=== PATIENT | female | born 1985 | race Native Hawaiian/Other Pacific Islander ===

== ENCOUNTER 2017-11-25 06:00 | Inpatient (IN) | payer OTHER ==
[2017-11-25 06:16] VITALS: BMI 29.2
[2017-11-25] MEDS ORDERED: Phenaphthazine-PH Test Paper VI ONE (06:44)
--- NOTE | 2017-11-25 08:23 | OBHP ---
Datetime: 11/25/2017 06:47 IP Adm Impression: , intrauterine IP Admit Plan: Admit to unit; Initiate labor protocol; Observation/Evaluation Admit Comment, IP Provider: 32 y/o F at 35.2 weeks GA presents to [facility] c/o gush of fluid coming out from vagina at 04:00 am. Fluid was described as pinkish clear with some little bloody mucus. CTX are present, very mild and occuring every 30 minutes. FM present. Pt denies headache, visual disturb ances, CP, SOB, N/V, urinary complaints or pruritus. [facility] Clinic: [facility] with Dr Franco. (Pre- records not available). OBHx: , no complications during as per patient. PMHx: Hypothyroidism. Meds: Levothyroxine 50mcg, PNV. PSHx: denied FHx: denied SHx: No tobacco, alcohol or rec drugs. A/P: 32 y/o F with IUP at 35.2 weeks GA, with suspected PPROM. -Speculum exam revealed pooling Admitting routine labs IV antibiotics misoprostol Anticipate normal vaginal delivery Estimated weight 6 pounds vertex presentation adequate Patient was seen with resident I agree with note Extremities - PN: Normal Abdomen - PN: Normal Back - PN: Normal Lungs - PN: Normal Heart - PN: Normal Neurologic - PN: Normal HEENT - PN: Normal General - PN: Normal Amniotic Fluid Color, Provider: Clear Membranes, Provider: Ruptured Comments, ACOG Physical Exam: Speculum exam gross pooling Pool Provider: Positive Nitrazine Provider: Positive EGA AdmitDate IP: 35.2 Vital Signs Provider: Reviewed; Within Normal Limits IP Chief Complaint: Suspected ruptured membranes; Maternal discomfort Genitourinary Exam: Normal
[2017-11-25 08:42] LABS: BASO # 0.1 K/uL (0.0-0.2); BASO % 0.4 % (0.0-2.0); EOS % 0.3 % (0.0-4.0); HEMOGLOBIN 12.6 g/dL (12.0-16.0); LYMPH # 2.1 K/uL (1.0-4.3); LYMPH % 14.2 % (20.0-40.0); MEAN CELL VOLUME 83.2 fl (81.0-99.0); MEAN CORPUSCULAR HEMOGLOBIN 27.8 pg (27.0-31.0); MEAN CORPUSCULAR HGB CONC 33.4 g/dL (33.0-37.0); MEAN PLATELET VOLUME 10.1 fl (7.2-11.7); MONO # 0.7 K/uL (0.0-0.8); NEUT % 80.1 % (50.0-75.0); NRBC % 0.1 % (0.0-0.0); RBC 4.54 Mil/uL (3.80-5.20); RED CELL DISTRIBUTION WIDTH 14.6 % (11.5-14.5)
[2017-11-25] MEDS: Lactated Ringer's 1,000 ML IV SCH ×2 (09:20→23:04)
[2017-11-25] MEDS ORDERED: Nalbuphine 20 mg/ml Inj (1 ml) IVP ONE (22:35)
--- NOTE | 2017-11-26 08:34 | OBPN ---
Datetime: 11/26/2017 08:10 IP Progress Impression: Reassuring heart rate IP Informed Consent Obtain: Vaginal Delivery; Risks, Benefits and Alternatives Discussed IP Progress Plan: Continue present management; Induction; Cervical Ripening IP Progress Note Comment: She was admitted for SROM / prolonged ROM She was given Cytotec x 3 doses SVE ft Discussion with pt about IOL and Prolonged ROM PLAN: continue Cytotec 50mcg/Ab FHR Category Provider Fetus A: Category I Dilatation, Provider: FT Datetime: 11/25/2017 06:47 Pool Provider: Positive Nitrazine Provider: Positive Membranes, Provider: Ruptured Amniotic Fluid Color, Provider: Clear FHR - Baseline A Provider: 142 Vital Signs Provider: Reviewed; Within Normal Limits NICHD Accel Fetus A IP Provider: [id number] NICHD Variability Prov Fetus A: Moderate 6-25bpm NICHD Decel Fetus A IP Provider: None
[2017-11-26] MEDS ORDERED: ceFAZolin IV 2 gm in Dextrose 2 GM/50 ML BAG IVPB ONE ×2 (10:10→10:30)
[2017-11-26] MEDS ORDERED: Oxytocin 30 UNITS in Sodium Chloride 0.9% 500 ML IV ONE (10:10)
--- NOTE | 2017-11-26 10:26 | OBPN ---
Datetime: 11/26/2017 10:10 IP Informed Consent Obtain: Section Delivery; Risks, Benefits and Alternatives Discussed IP Progress Plan: Deliver- Section IP Progress Note Comment: Notified of repetitive deceleratoins. SVE FT A: recurrent decelerations remote from delivery PLAN: C/Seciton...informed consent obtained FHR Category Provider Fetus A: Category II NICHD Decel Fetus A IP Provider: Variable
[2017-11-26] MEDS ORDERED: Morphine 5 mg/10 ml preservative-free Inj(Duramorph) ONE (10:40)
[2017-11-26] MEDS ORDERED: Oxycodone/Acetaminophen 5/325 mg Tab PO PRN (11:40)
[2017-11-26] MEDS ORDERED: DiphenhydrAMINE 50 mg/ml Inj IVP PRN (13:31)
--- NOTE | 2017-11-26 16:17 | OBDS ---
DELIVERY PERSONNEL Delivery Doctor: Monika Prado DO Manufacturing Intern: Dania Marc RN Anesthesiologist: Dr. Rose Resident: Dr. Alejo MATERNAL INFORMATION Delivery Anesthesia: Spinal Medications in Delivery: Pitocin 30 units Estimated Blood Loss (ml): 800 Placenta Cultured: No Maternal Complications: Premature Rupture of Membranes Provider Comments: PreOp Dx: repetitive decels remote fron delivery Post Op Dx same/? abruption of placenta Surgeon Dr Prado Asst Lisette Asst: Dr Cedillo Anesth: Dr Alexandra Anesth: Spinal Findings: live infant female delivered from [facility] 9,9 Clear AF Placenta delivered intact manually (?abruption) Ovaries and tubes WNL She remained stable EBL 800cc LABOR SUMMARY EDC: 12/28/2017 00:00 No. Babies in Womb: 1 LABOR INFORMATION Reason for Induction: Not Applicable Cervical Ripening Agents: Cytotec @ Oxytocin: N/A Group B Beta Strep: Done, Result Unknown Antibiotics # of Doses: 5 Antibiotics Time of Last Dose: 815 Steroids Given: None MEMBRANES Membranes Rupture Method: Spontaneous Rupture of Membranes: 11/25/2017 04:00 Length of Rupture (hrs): 31.18 Amniotic Fluid Color: Clear Amniotic Fluid Amount: Small Amniotic Fluid Odor: Normal STAGES OF LABOR Stage 3 hrs: 0 Stage 3 min: 1 CSECTION DELIVERY Primary Indication: Other Other Primary Indication: repetitive decelerations CSection Urgency: Elective CSection Incidence: Primary Labor: Labor Elective: Elective CSection Incision: Lower Uterine Transverse BABY A INFORMATION Delivery Date/Time: 11/26/2017 11:11 Method of Delivery: Born in Route : No : N/A Forceps: N/A Vacuum Extraction: N/A Shoulder Dystocia : No SHOULDER DYSTOCIA BABY A Delivery Date/Time: 11/26/2017 11:11 PRESENTATION/POSITION BABY A Presentation: Cephalic Cephalic Presentation: Vertex Breech Presentation: N/A PLACENTA INFORMATION BABY A Placenta Delivery Time : 11/26/2017 11:12 Placenta Method of Delivery: Spontaneous Placenta Status: Delivered SCORES BABY A Heart Rate 1 min: >100 bpm Resp Effort 1 min: Good Cry Reflex Irritability 1 min: Cough or Sneeze or Pulls Away Muscle Tone 1 min: Active Motion Color 1 min: Body [place], Extremities Blue Resuscitation Effort 1 min: Tactile Stimulation SCORE 1 MIN: 9 Heart Rate 5 min: >100 bpm Resp Effort 5 min: Good Cry Reflex Irritability 5 min: Cough or Sneeze or Pulls Away Muscle Tone 5 min: Active Motion Color 5 min: Body [place], Extremities Blue Resuscitation Effort 5 min: Tactile Stimulation SCORE 5 MIN: 9 INFORMATION BABY A Gestational Age at Delivery: 35.0 Gestational Status: Infant Outcome : Liveborn Condition : Stable Sex: Female IDENTIFICATION/MEDS BABY A ID Band Number: [id number] ID Band Location: Left Leg; Left Arm WEIGHT/LENGTH BABY A Birthweight (gms): 2655 Weight (lb): 5 Infant Weight (oz): 14 CORD INFORMATION BABY A No. Cord Vessels: 3 Nuchal Cord : N/A Nuchal Cord Other: n/a True Knot: n/a Cord Blood Taken: N/A Infant Suction: None ASSESSMENT BABY A Infant Complications: Decreased Variability; Multiple Late Decels; Multiple Variable Decels Physical Findings at Delivery: Within Normal Limits Infant Respirations: Appears Normal Cuff Runner/ALS Called : No Infant Care By: Josephine Pak Transferred To: [facility]
[2017-11-26] MEDS: Lactated Ringer's 1,000 ML IV SCH (18:55)
[2017-11-27] MEDS: Lactated Ringer's 1,000 ML IV SCH (02:08)
[2017-11-27 07:09] LABS: BASO % 0.3 % (0.0-2.0); EOS # 0.1 K/uL (0.0-0.7); EOS % 0.5 % (0.0-4.0); HEMOGLOBIN 11.1 g/dL (12.0-16.0); LYMPH # 1.7 K/uL (1.0-4.3); LYMPH % 14.7 % (20.0-40.0); MEAN CELL VOLUME 82.9 fl (81.0-99.0); MEAN CORPUSCULAR HEMOGLOBIN 27.7 pg (27.0-31.0); MEAN CORPUSCULAR HGB CONC 33.5 g/dL (33.0-37.0); MEAN PLATELET VOLUME 9.7 fl (7.2-11.7); MONO # 0.8 K/uL (0.0-0.8); MONO % 6.6 % (0.0-10.0); NEUT % 77.9 % (50.0-75.0); RBC 3.99 Mil/uL (3.80-5.20); RED CELL DISTRIBUTION WIDTH 15.2 % (11.5-14.5); WHITE BLOOD COUNT 11.6 K/uL (4.8-10.8)
[2017-11-27] MEDS ORDERED: DiphenhydrAMINE 50 mg/ml Inj IVP PRN (07:38)
[2017-11-27] MEDS ORDERED: Lactated Ringer's 1,000 ML IV SCH (07:38)
[2017-11-27] MEDS: Oxycodone/Acetaminophen 5/325 mg Tab PO PRN ×2 (11:30→20:01)
--- NOTE | 2017-11-27 11:56 | OBPPN ---
Datetime: 11/27/2017 11:52 PP Pain Prov: Within normal limits PP Nausea Prov: Denies PP Flatus Prov: Yes PP Breasts Prov: Not Done PP Heart Prov: Normal PP Lungs Prov: Normal PP Abdomen/Uterus Prov: Normal PP Lochia Prov: Not Done PP Vulva/Perineum Prov: Not Done PP CVA Tenderness Prov: Normal PP Extremities Prov: Normal PP C/S Incision Prov: Normal PP Impression Prov: Normal progression PP Plan Prov: Continue present management PP Progress Note Prov: Postoperative day #2 Patient doing well ambulating tolerating diet pain well-controlled with Percocet and Motrin Vital signs stable afebrile Uterus firm below the umbilicus Incision clean dry and intact Postoperative day #2 Ambulate, analgesia, regular diet, anticipate discharge in a.m. Vital Signs Provider PP: Reviewed
[2017-11-28] MEDS: Oxycodone/Acetaminophen 5/325 mg Tab PO PRN ×3 (00:46→19:33)
[2017-11-29] MEDS: Oxycodone/Acetaminophen 5/325 mg Tab PO PRN (04:04)
--- NOTE | 2017-11-29 09:51 | OBPPN ---
Datetime: 11/28/2017 09:46 PP Pain Prov: Within normal limits PP Nausea Prov: Denies PP Flatus Prov: Yes PP Breasts Prov: Normal PP Heart Prov: Normal PP Lungs Prov: Normal PP Abdomen/Uterus Prov: Normal PP Lochia Prov: Normal PP Vulva/Perineum Prov: Normal PP CVA Tenderness Prov: Normal PP Extremities Prov: Normal PP C/S Incision Prov: Normal PP Comments Phys Exam Prov: Incision clean, dry, intact. PP Impression Prov: Normal progression PP Plan Prov: Continue present management PP Progress Note Prov: Postoperative day #2 status post , recovering well Continue current management Anticipate discharge home tomorrow IP PP Procedures: None Vital Signs Provider PP: Reviewed; Within Normal Limits
--- NOTE | 2017-11-29 12:47 | OBDS ---
DELIVERY PERSONNEL Delivery Doctor: Monika Prado DO Website Project Manager: Dania Marc RN Anesthesiologist: Dr. Rose Resident: Dr. Alejo MATERNAL INFORMATION Delivery Anesthesia: Spinal Medications in Delivery: Pitocin 30 units Estimated Blood Loss (ml): 800 Placenta Cultured: No Maternal Complications: Premature Rupture of Membranes Provider Comments: PreOp Dx: repetitive decels remote fron delivery Post Op Dx same/? abruption of placenta Surgeon Dr Prado Asst Lisette Asst: Dr Cedillo Anesth: Dr Alexandra Anesth: Spinal Findings: live infant female delivered from [facility] 9,9 Clear AF Placenta delivered intact manually (?abruption) Ovaries and tubes WNL She remained stable EBL 800cc Dict#[id number] LABOR SUMMARY EDC: 12/28/2017 00:00 No. Babies in Womb: 1 LABOR INFORMATION Reason for Induction: Not Applicable Cervical Ripening Agents: Cytotec @ Cervical Ripening Agents: Cytotec @ 50 Cervical Ripening Agents: Cytotec @ 50 Cervical Ripening Agents: Cytotec @ 50mcg Oxytocin: N/A Group B Beta Strep: Done, Result Unknown Antibiotics # of Doses: 5 Antibiotics Time of Last Dose: 815 Steroids Given: None MEMBRANES Membranes Rupture Method: Spontaneous Rupture of Membranes: 11/25/2017 04:00 Length of Rupture (hrs): 31.18 Amniotic Fluid Color: Clear Amniotic Fluid Amount: Small Amniotic Fluid Odor: Normal STAGES OF LABOR Stage 3 hrs: 0 Stage 3 min: 1 CSECTION DELIVERY Primary Indication: Other Other Primary Indication: repetitive decelerations CSection Urgency: Elective CSection Incidence: Primary Labor: Labor Elective: Elective CSection Incision: Lower Uterine Transverse BABY A INFORMATION Delivery Date/Time: 11/26/2017 11:11 Method of Delivery: Born in Route : No : N/A Forceps: N/A Vacuum Extraction: N/A Shoulder Dystocia : No SHOULDER DYSTOCIA BABY A Delivery Date/Time: 11/26/2017 11:11 PRESENTATION/POSITION BABY A Presentation: Cephalic Cephalic Presentation: Vertex Breech Presentation: N/A PLACENTA INFORMATION BABY A Placenta Delivery Time : 11/26/2017 11:12 Placenta Method of Delivery: Spontaneous Placenta Status: Delivered SCORES BABY A Heart Rate 1 min: >100 bpm Resp Effort 1 min: Good Cry Reflex Irritability 1 min: Cough or Sneeze or Pulls Away Muscle Tone 1 min: Active Motion Color 1 min: Body [place], Extremities Blue Resuscitation Effort 1 min: Tactile Stimulation SCORE 1 MIN: 9 Heart Rate 5 min: >100 bpm Resp Effort 5 min: Good Cry Reflex Irritability 5 min: Cough or Sneeze or Pulls Away Muscle Tone 5 min: Active Motion Color 5 min: Body [place], Extremities Blue Resuscitation Effort 5 min: Tactile Stimulation SCORE 5 MIN: 9 INFANT INFORMATION BABY A Gestational Age at Delivery: 35.0 Gestational Status: Outcome : Liveborn Condition : Stable Sex: Female IDENTIFICATION/MEDS BABY A ID Band Number: [id number] ID Band Location: Left Leg; Left Arm WEIGHT/LENGTH BABY A Infant Birthweight (gms): 2655 Weight (lb): 5 Infant Weight (oz): 14 CORD INFORMATION BABY A No. Cord Vessels: 3 Nuchal Cord : N/A Nuchal Cord Other: n/a True Knot: n/a Cord Blood Taken: N/A Suction: None ASSESSMENT BABY A Complications: Decreased Variability; Multiple Late Decels; Multiple Variable Decels Physical Findings at Delivery: Within Normal Limits Infant Respirations: Appears Normal Director Of Safety/ALS Called : No Infant Care By: Josephine Pak Transferred To: Nursery
--- NOTE | 2017-11-30 07:34 | OBPPN ---
Datetime: 11/30/2017 07:33 PP Pain Prov: Within normal limits PP Nausea Prov: Denies PP Flatus Prov: Yes PP BM Prov: Yes PP Breasts Prov: Normal PP Heart Prov: Normal PP Lungs Prov: Normal PP Abdomen/Uterus Prov: Normal PP Lochia Prov: Normal PP Vulva/Perineum Prov: Normal PP CVA Tenderness Prov: Normal PP Extremities Prov: Normal PP C/S Incision Prov: Normal PP Progress Prov: Normal PP Impression Prov: Normal progression PP Plan Prov: Continue present management PP Progress Note Prov: POD4 She feels fine +BM A: S/P C/S day 4 PLAN: dischagre and follow up in 1-2w Vital Signs Provider PP: Reviewed; Within Normal Limits
[2017-11-30 21:53] VITALS: BP 112/70; PULSE 72; RESP 20; TEMP 99.5; O2SAT 100
--- NOTE | 2017-12-02 09:33 | OP ---
PROCEDURE DATE: 11/26/2017 PREOPERATIVE DIAGNOSES: Intrauterine at 35 plus weeks' gestation, repetitive decelerations remote from delivery. POSTOPERATIVE DIAGNOSES: Intrauterine at 35 plus weeks' gestation, repetitive decelerations remote from delivery and possible abruption of the placenta. SURGEON: William Prado DO. GLYCERIN SUPERVISOR: Beni Howe MD (Dr Howe is an OBGYN attending who happened to be present in L&D for this emergency. His presence was necessary for this procedure. he was present from skin incision, to delivery of the infant to skin closure), Dr. Cedillo, PGY-1. TYPE OF ANESTHESIA: Spinal. ANESTHESIA ADMINISTERED BY: Seven Rose MD. OPRATIVE FINDINGS: Live female delivered from cephalic presentation. Apgars score of 9 and 9 given at one and five minutes respectively. Clear amniotic fluid noted. Placenta was delivered intact manually, but possible abruption secondary to large amount of blood clots noted. Ovaries and tubes appeared to be within normal limits. She remained hemodynamically stable throughout the procedure. ESTIMATED BLOOD LOSS: 800 mL. DESCRIPTION OF PROCEDURE: Kenia was brought to the operating room. After successful spinal anesthesia by Dr. Rose, she was placed in the supine position. Compression boots were placed on both lower extremities. Ragland catheter was placed and left in place and noted to be draining clear urine. She was then draped and prepped in the usual sterile manner. Once adequate anesthesia was obtained, a Pfannenstiel incision was made using a scalpel. Incision was then taken down to underlying fascia using electrocautery. Fascia was nicked in the midline and extended bilaterally using electrocautery. The inferior aspect of the fascia was grasped using 2 Sayra clamps, tented up and the rectus muscle was both bluntly and sharply dissected using electrocautery, same was done with the superior aspect of the fascia. In the midline superiorly, the rectus muscle was bluntly. The peritoneum was also entered bluntly superiorly and then this incision was then extended superiorly and inferiorly with direct visualization of bladder and intestines. Bladder blade was then inserted. A bladder flap was created by incising peritoneum and the uterus and then extending bilaterally using Metzenbaum scissors. A bladder flap was created digitally. Bladder blade was then inserted behind the bladder flap. A low transverse incision was made using a scalpel. Upon entering the uterus with scalpel, incision was then extended bilaterally using bandage scissors. Rupture of membranes was performed using forceps with teeth. Clear fluid was noted. First, the Infant's head was then delivered as atraumatically as possible with bulb suctioned nasopharyngeally. The remainder of the was then delivered as atraumatically as possible. Cord was clamped and cut. Infant was handed to the switch cleaner in attendance. Infant was crying spontaneously. Cord bloods were obtained. Thereafter, the placenta was then delivered intact manually. Upon delivery of the placenta, large amount of blood clots were noted behind the placenta. Uterus was then exteriorized, noted to be cleared of debris and clots. Lower uterine segment was grasped using 2 T-clamps and 2 Allis clamps. First layer of the uterus was closed using 0 Vicryl suture, second layer of the uterus was closed using 0 Vicryl suture, both interlocking and second layer imbricating the first layer. Good hemostasis was assured. Ovaries and tubes appeared to be within normal limits grossly. Posterior cul-de-sac was noted to be clear of debris and clots. Uterus was placed back into peritoneal cavity. Copious irrigation was performed. Incision line was reinspected on the uterus and noted to have good hemostasis. All equipments was removed and accounted for. An 0 Vicryl suture was then used to approximate the peritoneum in a running fashion. The rectus muscle was noted to have good hemostasis. It was approximated x3 using 0 Vicryl suture. An 0 Vicryl suture was then used to approximate the fascia layer in a running fashion. Irrigation was performed. Subcuticular layer noted to have good hemostasis. Being assured, 2-0 plain sutures was used to approximate subcuticular layer x3. A 3-0 Vicryl suture was used to approximate the skin. Dermabond, Steri-Strips and a pressure bandage applied. All equipments, sponges and needles accounted for. She was transferred to the recovery room in stable condition. William Prado DO ROYX
== END 2017-11-30 17:07 | disposition home or self-care (01) | DRG 765 ==
LOC: H.EROB2 06:00 → H.L&D 08:06 → H.OB/GYN 11-26 16:40
PROVIDERS: ADMIT Obstetrics & Gynecology Gynecology; ATTEND Obstetrics & Gynecology Gynecology
PROC: 10D00Z1 Extraction of Products of Conception, Low, Open Approach (ICD-10-PCS; principal; 2017-11-25)
PROC: 4A1HXCZ Monitoring of Products of Conception, Cardiac Rate, External Approach (ICD-10-PCS; 2017-11-25)
DX: O76 Abnormality in fetal heart rate and rhythm complicating labor and delivery (principal); O45.93 Premature separation of placenta, unspecified, third trimester; O60.14X0 Preterm labor third trimester with preterm delivery third trimester, not applicable or unspecified; Z37.0 Single live birth; Z3A.35 35 weeks gestation of pregnancy; O99.284 Endocrine, nutritional and metabolic diseases complicating childbirth; E03.9 Hypothyroidism, unspecified